=== PATIENT | female | born 1975 | race American Indian/Alaskan Native ===

== ENCOUNTER 2018-12-07 17:52 | Emergency (ER) | payer SELFPAY ==
[2018-12-07 18:44] LABS: Basophils # (Auto) 0.1 K/mm3 (0.0-0.1); Eosinophils # (Auto) 0.3 K/mm3 (0.0-0.4); Eosinophils % (Auto) 3.6 % (0.0-4.3); Lymphocytes # (Auto) 2.1 K/mm3 (1.2-5.4); Mean Corpuscular HGB Conc 29 % (30-34); Monocytes # (Auto) 0.7 K/mm3 (0.0-0.8); Monocytes % (Auto) 8.3 % (0.0-7.3); Platelet Count 379 K/mm3 (140-440); Red Blood Count 3.91 M/mm3 (3.65-5.03)
[2018-12-07 18:49] LABS: Hematocrit 24.8 % (30.3-42.9); Hemoglobin 7.2 gm/dl (10.1-14.3); Mean Corpuscular Volume 63 fl (79-97)
[2018-12-07 18:57] LABS: Alanine Aminotransferase 12 units/L (7-56); Albumin 4.2 g/dL (3.9-5); BUN/Creatinine Ratio 14; Blood Urea Nitrogen 10 mg/dL (7-17); Calcium 9.7 mg/dL (8.4-10.2); Hemolysis Index 0
--- NOTE | 2018-12-07 22:39 | Emergency Department Report ---
ED General Adult HPI - General Chief complaint: Recheck/Abnormal Lab/Rx Stated complaint: LOW IRON REF BY DOCTOR Time Seen by Provider: 12/07/18 21:59 Source: patient Mode of arrival: Ambulatory Limitations: No Limitations - History of Present Illness Initial comments: Patient is a 43-year-old [place] female who was sent in by her primary care physician secondary to a low hemoglobin. Patient's hemoglobin which was drawn yesterday that was 6.5. Patient is asymptomatic and denies any chest pain shortness of breath or weakness. Patient has had blood transfusions in the past. Patient is on iron therapy 3 times a day. Patient states that several days ago she did and a month-long menses. Patient states this was heavier and longer than her normal menses. Patient's low hemoglobin likely secondary to the prolonged dysfunctional uterine bleeding. - Related Data Previous Rx's Medication Instructions Recorded Last Taken Type medroxyPROGESTERone ACETATE 5 mg PO QDAY #7 tablet 12/07/18 Unknown Rx [Provera] Allergies Allergy/AdvReac Type Severity Reaction Status Date / Time electrolyzed water Allergy Unknown Verified 12/07/18 17:57 [From Microcyn] hypochlorous acid Allergy Unknown Verified 12/07/18 17:57 [From [facility]cyn] sodium chloride Allergy Unknown Verified 12/07/18 17:57 [From Microcyn] sodium hypochlorite solution Allergy Unknown Verified 12/07/18 17:57 [From Microcyn] ED Review of Systems ROS: Stated complaint: LOW IRON REF BY DOCTOR Other details as noted in HPI Comment: All other systems reviewed and negative ED Past Medical Hx - Past Medical History Previous Medical History?: Yes Hx Hypertension: Yes Additional medical history: heart, asthma, sickle cell trait, - Social History Smoking Status: Never Smoker Substance Use Type: None - Medications Home Medications: Home Medications Medication Instructions Recorded Confirmed Last Taken Type medroxyPROGESTERone ACETATE 5 mg PO QDAY #7 tablet 12/07/18 Unknown Rx [Provera] ED Physical Exam - General Limitations: No Limitations General appearance: alert, in no apparent distress - Head Head exam: Present: atraumatic, normocephalic - Eye Eye exam: Present: normal appearance, PERRL, EOMI - ENT ENT exam: Present: normal orophraynx, mucous membranes moist - Neck Neck exam: Present: normal inspection - Respiratory Respiratory exam: Present: normal lung sounds bilaterally. Absent: respiratory distress, wheezes, rales, rhonchi - Cardiovascular Cardiovascular Exam: Present: regular rate, normal rhythm, normal heart sounds. Absent: systolic murmur, diastolic murmur, rubs, gallop - GI/Abdominal GI/Abdominal exam: Present: soft, normal bowel sounds. Absent: distended, tenderness, guarding, rebound - Extremities Exam Extremities exam: Present: normal inspection - Back Exam Back exam: Present: normal inspection - Neurological Exam Neurological exam: Present: alert, oriented X3 - Psychiatric Psychiatric exam: Present: normal affect, normal mood - Skin Skin exam: Present: warm, dry, intact, normal color. Absent: rash ED Course Vital Signs 12/07/18 12/07/18 18:06 22:23 Temperature 98.5 F Pulse Rate 108 H Respiratory 16 18 Rate O2 Sat by Pulse 97 Oximetry ED Medical Decision Making - Lab Data Result diagrams: 12/07/18 18:16 12/07/18 18:16 - Medical Decision Making Patient's hemoglobin today is 7.2. Patient's hemoglobin likely has rebound is secondary to her that no longer having any heavy vaginal bleeding. Patient does not meet criteria for emergent of blood transfusion. Patient to be discharged home. 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 Critical care attestation.: If time is entered above; I have spent that time in minutes in the direct care of this critically ill patient, excluding procedure time. ED Disposition Clinical Impression: DUB (dysfunctional uterine bleeding) Anemia Qualifiers: Anemia type: iron deficiency Iron deficiency anemia type: unspecified iron deficiency Qualified Code(s): D50.9 - Iron deficiency anemia, unspecified Disposition: - TO HOME OR SELFCARE Is pt being admited?: No Does the pt Need Aspirin: No Condition: Stable Instructions: Dysfunctional Uterine Bleeding (ED), Iron Rich Diet (ED), Anemia (ED) Time of Disposition: 22:38
== END 2018-12-07 23:00 | disposition home or self-care (01) ==
LOC: ED 17:52
DX: D64.9 Anemia, unspecified (principal); N93.8 Other specified abnormal uterine and vaginal bleeding; Z91.048 Other nonmedicinal substance allergy status; Z88.8 Allergy status to other drugs, medicaments and biological substances
CPT/HCPCS: 36415; 80053; 85025; 86850; 86900; 86901